=== PATIENT | male | born 1940 | race Caucasian/White ===

== ENCOUNTER 2017-01-23 10:04 | Emergency (ER) | payer MEDICARE, OTHER | END 2017-01-23 15:15 | disposition critical access hospital (66) | LOC: ER 10:04 | DX: R53.1 Weakness (principal); N39.0 Urinary tract infection, site not specified; E03.9 Hypothyroidism, unspecified; J90 Pleural effusion, not elsewhere classified; E11.9 Type 2 diabetes mellitus without complications; K21.9 Gastro-esophageal reflux disease without esophagitis; I25.2 Old myocardial infarction; I10 Essential (primary) hypertension; F17.220 Nicotine dependence, chewing tobacco, uncomplicated; Z95.1 Presence of aortocoronary bypass graft; Z79.82 Long term (current) use of aspirin; Z79.01 Long term (current) use of anticoagulants; Z79.4 Long term (current) use of insulin; Z79.899 Other long term (current) drug therapy | CPT/HCPCS: 36415 ==

== ENCOUNTER 2017-01-23 10:04 | Inpatient (IN) | payer MEDICARE, OTHER ==
--- NOTE | 2017-01-23 18:38 | NUR ---
1800 dr[address] stock aware pt. hr in 50"s and has dropped to 50.
--- NOTE | 2017-01-24 11:21 | NUR ---
1100 - 24 HOUR URINE STARTED/MD ORDER.
== END 2017-01-26 15:55 | disposition home or self-care (01) | DRG 644 ==
LOC: ER 10:04 → MED 15:16
PROVIDERS: ADMIT Internal Medicine Cardiovascular Disease
DX: E03.9 Hypothyroidism, unspecified (principal); J90 Pleural effusion, not elsewhere classified; Z95.2 Presence of prosthetic heart valve; Z79.01 Long term (current) use of anticoagulants; E78.5 Hyperlipidemia, unspecified; I12.9 Hypertensive chronic kidney disease with stage 1 through stage 4 chronic kidney disease, or unspecified chronic kidney disease; N18.2 Chronic kidney disease, stage 2 (mild); H57.8 Other specified disorders of eye and adnexa; I95.1 Orthostatic hypotension; I48.0 Paroxysmal atrial fibrillation; D64.9 Anemia, unspecified; R00.1 Bradycardia, unspecified; E11.22 Type 2 diabetes mellitus with diabetic chronic kidney disease; K21.9 Gastro-esophageal reflux disease without esophagitis; N40.0 Benign prostatic hyperplasia without lower urinary tract symptoms; F17.210 Nicotine dependence, cigarettes, uncomplicated; K59.00 Constipation, unspecified; Z66 Do not resuscitate; G89.4 Chronic pain syndrome; M54.5 Low back pain; Z79.899 Other long term (current) drug therapy
CPT/HCPCS: 36415; 97162-GP; 97165